=== PATIENT | female | born 1985 | race Caucasian/White ===

== ENCOUNTER 2017-02-04 11:36 | Emergency (ER) | payer SELFPAY ==
[~2017-02-04] VITALS: Ht 165.1 cm; Wt 75.2 kg
[2017-02-04] MEDS ORDERED: LEXAPRO20 MG PO (13:52)
[2017-02-04] MEDS ORDERED: KLONOPIN1 MG PO (13:54)
[2017-02-04] MEDS ORDERED: ZITHROMAX Z-PA250 MG PO (15:44)
[2017-02-04 15:55] VITALS: BP 109/72
== END 2017-02-04 15:56 | disposition home or self-care (01) ==
LOC: EME 11:36
PROVIDERS: Nurse Practitioner Family
DX: B34.9 Viral infection, unspecified (principal)
CPT/HCPCS: 87502; 99281; 99283